=== PATIENT | female | born 1990 | race Caucasian/White ===

== ENCOUNTER 2018-01-27 06:53 | Inpatient (IN) | payer BC, SELFPAY ==
[2018-01-27] MEDS ORDERED: Butorphanol Tartrate 1 MG/ML VIAL SLOW IVP PRN (07:55)
[2018-01-27] MEDS ORDERED: Promethazine HCl 25 MG/ML VIAL IM/IV PRN (07:55)
--- NOTE | 2018-01-27 07:57 | PDOC.LDHP ---
Labor and Delivery H&P HPI: Patient of Dr Gifford here for contractions. EGA 39 weeks 5 days, G1 po. Has full handwritten H&P in chart In brief, contractions since o200 but no LOF no VB no Has. Current gestational age (weeks): 39 (5 days) Dating criteria: last menstrual period Grav: 1 Para: 0 Current complications: none Abnormal US findings: Yes Current medications: none Previous surgical history: none Allergies/Adverse Reactions: Allergies Allergy/AdvReac Type Severity Reaction Status Date / Time No Known Allergies Allergy Verified 01/27/18 07:25 Social history: none - Physical Exam Vital signs reviewed and normal: yes General: NAD Heart: RRR Lungs: CTAB Abdomen: gravid FHT: category 1 [place] contractions every: every 3 - Vaginal Exam cm dilated: 3 Effacement: 75% Station: -1 - Assessment Latent phase GBS neg - Plan Plan: observation in L&D, other (recheck in 1-2 hours, I suspect admit then due to regular contraction but we will see if changesd for now. Dr Shabbir Gifford is out of town, per personal communication, so or team will cover. Patient seen by me at bedside)
[2018-01-27] MEDS ORDERED: Lactated Ringer's 1,000 ML IV SCH ×2 (08:00→09:45)
[2018-01-27] MEDS ORDERED: HYDROcodone/Acetaminophen 5/325 mg Tablet PO PRN ×2 (09:37)
[2018-01-27] MEDS ORDERED: Promethazine HCl 25 MG/ML VIAL IM PRN ×2 (09:37→23:53)
[2018-01-27] MEDS ORDERED: Lidocaine 1% (PF) 30 ML VIAL SC PRN (09:37)
[2018-01-27] MEDS ORDERED: Ondansetron HCl/PF 4 MG/2 ML Vial IVP PRN ×3 (09:37→23:53)
[2018-01-27] MEDS ORDERED: Ibuprofen 800 MG TAB PO PRN (09:37)
[2018-01-27] MEDS ORDERED: NS / Oxytocin 40 units/1000ml 1,000 ML IV PRN (09:37)
--- NOTE | 2018-01-27 09:42 | PDOC.EVN ---
Event Note - Event Note Event Note: Breathing with UCs. SVE per RN now 4cm/90/0 vtx. Fhts stable, UCs q 3-4 mins. Admit. Requesting epidural.
[2018-01-27] MEDS ORDERED: NS w/ Oxytocin 10 units 500 ML IV SCH (09:45)
[2018-01-27] MEDS ORDERED: DISCONTINUE ALL PREVIOUS NARCOTICS FS SCH (09:45)
[2018-01-27 09:52] LABS: Hemoglobin 13.6 g/dL (12.0-16.0); Mean Corpuscular HGB CONC 34.5 g/dL (32.0-36.0); Mean Corpuscular Hemoglobin 30.7 pg (27.0-31.0); Mean Corpuscular Volume 89.2 fl (81.0-99.0); Mean Platelet Volume 9.7 fL (7.4-10.4); Platelet Count 149 thou/uL (130-400); Red Blood Cell (RBC) Count 4.42 mill/uL (4.20-5.40); White Blood Cell (WBC) Count 16.7 thou/uL (4.8-10.8)
[2018-01-27] MEDS ORDERED: Lidocaine 2% 10 ML INJ ONE ×2 (10:20→22:14)
[2018-01-27 10:21] LABS: HBSAg Index 0.27 S/CO (0-0.99); Hep B Surf Ag Non-Reactive S/CO (NonReactive); Syphilis Antibody Nonreactive (Nonreactive); Syphilis Antibody Index 0.07 S/CO (<1.00 Non-Reactive)
[2018-01-27] MEDS ORDERED: Lidocaine 1% (PF) 30 ML VIAL ONE (10:21)
[2018-01-27] MEDS ORDERED: Sodium Chloride 0.9% 10 ML ONE (10:21)
--- NOTE | 2018-01-27 11:04 | PDOC.EVN ---
Event Note - Event Note Event Note: Comfortable post epidural. SVE= 4-5/80/-1, vtx. AROM with bloody fluid and particulate meconium. FHts are stable. UCs q 3-[address] IUPC and do amnioinfuion. Will observe carefully.
[2018-01-27] MEDS: Bupivacaine 0.5% 20 ML, fentaNYL Citrate/PF 400 MCG in Sodium Chloride 0.9% 72 ML EPIDURAL SCH ×2 (11:23→18:54)
[2018-01-27] MEDS: Lactated Ringer's 1,000 ML IV SCH ×3 (11:26→22:07)
[2018-01-27] MEDS ORDERED: Sodium Chloride 0.9% (PF) 10 ML VIAL ONE (13:00)
[2018-01-27] MEDS ORDERED: Bupivacaine/Epinephrine 0.25% 30 ML VIAL ONE (13:00)
[2018-01-27] MEDS ORDERED: Lidocaine 2% MPF 10 ML AMP (For Epidural Use) ONE ×2 (13:00→14:24)
--- NOTE | 2018-01-27 13:08 | PDOC.LDPN ---
Labor & Delivery Progress Note - Subjective Subjective: comfortable (Epidural in place.) - Objective Vital signs reviewed and normal: yes General: NAD Uterine fundus: palpable contractions SVE: 5-6 cm per RN Effacement: 90% FHT: category 1 [place] contractions every: q 3-5 mins Other exam findings: IUPC in place with amnioinfusion -: Progressing FHTs remain reassuring. Cont. amnioinfusion.
[2018-01-27] MEDS ORDERED: Lidocaine 1% PF 5 ML VIAL ONE (14:24)
[2018-01-27] MEDS ORDERED: Ondansetron HCl/PF 4 MG/2 ML Vial ONE (14:24)
[2018-01-27] MEDS ORDERED: Ketorolac Tromethamine 30 MG/ML VIAL ONE ×2 (14:24→22:22)
[2018-01-27] MEDS ORDERED: Dexamethasone 20 MG/5 ML VIAL ONE (14:24)
--- NOTE | 2018-01-27 15:13 | PDOC.LDPN ---
Labor & Delivery Progress Note - Subjective Subjective: comfortable - Objective Vital signs reviewed and normal: yes General: resting Uterine fundus: palpable contractions Dilation: 6-7 Effacement: 90% Station: 0 FHT: category 1, variability present [place] contractions every: q 2-3 min -: Continues to progress. Remains comfortable with epidural. Cont. amnioinfusion.
--- NOTE | 2018-01-27 17:10 | PDOC.LDPN ---
Labor & Delivery Progress Note - Subjective Subjective: comfortable - Objective Vital signs reviewed and normal: yes General: resting Uterine fundus: palpable contractions Dilation: 9 Effacement: 100% Station: 0 FHT: category 1 [place] contractions every: q 2-3 mins Plan: continue plan of care -: Progressing well.
--- NOTE | 2018-01-27 18:22 | PDOC.EVN ---
Event Note - Event Note Event Note: Remains comfortable with epidural. SVE remains unchanged, 9/C/0 per labor RN. Fhts with variable decels and good BTBV. UCs q 3-4 min. Temp now = 100.0. Plan: Start Amp and Gent for presumed chorioamnionitis, start pitocin augmentation. Watch carefully.
[2018-01-27] MEDS ORDERED: CEFAZOLIN 1 GM VIAL ONE (18:25)
[2018-01-27] MEDS ORDERED: CEFAZOLIN/Water 2 GM/20 ML SYRINGE ONE (18:30)
[2018-01-27] MEDS ORDERED: Gentamicin Sulfate 80 MG in Premix Bag 1 BAG IVPB SCH (20:00)
[2018-01-27] MEDS ORDERED: Ampicillin 2 GM in Sodium Chloride 0.9% 100 ML IVPB SCH (20:00)
--- NOTE | 2018-01-27 20:06 | PDOC.LDPN ---
Labor & Delivery Progress Note - Subjective Subjective: vaginal pressure - Objective Abnormal vital signs: T= 100.9 General: NAD Uterine fundus: palpable contractions SVE: C/C/+1 with caput FHT: category 1 [place] contractions every: q 2-3 mins Other exam findings: Pit @ 2 mu/min -: Gent given, Amp infusing. Begin pushing.
--- NOTE | 2018-01-27 22:09 | PDOC.LDPN ---
Labor & Delivery Progress Note - Subjective Subjective: other (Too tired to continue to push) - Objective Vital signs reviewed and normal: yes General: other (tearful) Uterine fundus: palpable contractions SVE: C/C/0- +1 FHT: variable decelerations [place] contractions every: q 2-3 mins Other exam findings: vtx not on pelvic floor -: Pt. unable to continue to push, requests C/S. Would not use vacuum assist at this time. Will proceed with abdominal delivery. Consent on chart.
[2018-01-27] MEDS ORDERED: Bicitra 30 ML UDCUP ONE ×2 (22:15→22:26)
[2018-01-27] MEDS ORDERED: Oxytocin 10 UNITS/ML VIAL ONE (22:22)
[2018-01-27] MEDS ORDERED: Dexamethasone 4 mg/ml Vial ONE (22:22)
[2018-01-27] MEDS ORDERED: Bicitra 30 ML UDCUP PO SCH (22:30)
[2018-01-27] MEDS ORDERED: Fentanyl 100 MCG/2 ML VIAL ONE (23:04)
[2018-01-27] MEDS ORDERED: Bupivacaine/Epinephrine 0.5% 10 ML VIAL ONE (23:07)
[2018-01-27] MEDS ORDERED: Methylergonovine 0.2 MG/ML VIAL ONE (23:08)
[2018-01-27] MEDS ORDERED: Midazolam HCl 2 mg/2 ml Vial ONE (23:10)
[2018-01-27] MEDS ORDERED: Morphine PF 1 MG/ML SYR ONE (23:20)
[2018-01-27] MEDS ORDERED: Ketorolac Tromethamine 30 MG/ML VIAL IVP SCH (23:45)
[2018-01-27] MEDS ORDERED: Communication Order-Pharmacy FS SCH (23:45)
[2018-01-27] MEDS ORDERED: diphenhydrAMINE 50 MG/ML VIAL IVP PRN (23:53)
[2018-01-27] MEDS ORDERED: Naloxone HCl 0.4 mg/ml Vial IV PRN (23:53)
[2018-01-27] MEDS ORDERED: HYDROmorphone 2 MG/ML VIAL SLOW IVP PRN (23:53)
[2018-01-27] MEDS ORDERED: Naloxone HCl 0.4 mg/ml Vial IVP PRN ×2 (23:53)
[2018-01-27] MEDS ORDERED: Promethazine HCl 25 MG SUPP PR PRN (23:53)
[2018-01-27] MEDS ORDERED: Eucerin (Mineral Oil/Petrolatum,White) 30 gm Jar TOP PRN (23:53)
[2018-01-27] MEDS ORDERED: Meperidine HCl/PF 25 MG/ML VIAL SLOW IVP PRN (23:53)
[2018-01-27] MEDS ORDERED: Ketorolac Tromethamine 30 MG/ML VIAL IVP PRN (23:53)
--- NOTE | 2018-01-28 01:05 | OP ---
DATE OF OPERATION: 01/27/2018 PREOPERATIVE DIAGNOSES: 1. A 39-week intrauterine in labor. 2. Failure to progress. 3. Meconium-stained fluid. 4. Chorioamnionitis. POSTOPERATIVE DIAGNOSES: 1. A 39-week intrauterine in labor. 2. Failure to progress. 3. Meconium-stained fluid. 4. Chorioamnionitis. 5. Deep transverse arrest. SURGEON: Horace Sands M.D. MAINTENANCE TECH: Tomas Hackett M.D., Resident Physician. PROCEDURE PERFORMED: Primary low segment transverse section via Pfannenstiel incision. FINDINGS: 1. Viable male , weight 6 pounds 14 ounces, found in the occiput transverse position deep in the pelvis with Apgars 1, 2 and 5. 2. Normal uterus, tubes, and ovaries bilaterally. PROPHYLAXIS: Ampicillin and gentamicin given for chorioamnionitis in labor. ESTIMATED BLOOD LOSS: 700 mL. COMPLICATIONS: None. BRIEF PATIENT DESCRIPTION: Ms. Tejada is a 27-year-old, white, G1, P0, who presented this morning in labor. Amniotomy was performed after admission and particulate meconium-stained fluid was seen. An IUPC with amnioinfusion was placed. The patient labored throughout the day with a reassuring tracing. She did require Pitocin augmentation at 9 cm to allow her become complete. She pushed for 2 hours and there was marked caput with the vertex remaining at the 0 to +1 station. Decision was made to proceed with primary section. Risks and benefits were discussed and the consent was on the chart. TECHNIQUE IN DETAIL: After good epidural anesthesia was achieved, the patient was prepped and draped in the usual sterile fashion in the supine position with leftward tilt. A transverse incision was made two fingerbreadths above the symphysis pubis and the abdomen was entered in layers. The uterus was identified and a bladder flap was created in the peritoneum. A transverse incision was made over the lower uterine segment and was extended bluntly. The baby was found deep in the pelvis in the occiput transverse position. The baby was delivered and the cord was clamped and cut. The baby was quickly taken to the warmer with the NICU team in attendance. The cord gases and cord blood were obtained. I found out later that the cord gases were clotted. The placenta was manually removed and the inside of the uterus was curetted with a dry lap to remove all remaining placental fragments. Closure of the uterine incision was begun using #1 chromic and then alternating running locking fashion. A second imbricating layer was placed for complete hemostasis. The uterus was replaced into the uterine cavity and the pelvic gutters were irrigated and cleared of all clots and debris. The uterine incision was again reviewed and was noted to be hemostatic. The peritoneum was closed using a 2-0 Monocryl in a running suture. The rectus muscles were inspected and were noted to be dry. Closure of the fascia was accomplished using two sutures of 0 Vicryl brought laterally to the midline in an alternating running locking fashion. The subcutaneous tissue was thoroughly irrigated and made dry using Bovie coagulation technique. The skin was closed with metal jude. Sponge, lap, and needle counts were correct. The patient tolerated the procedure well and was taken to the recovery room in good condition. SANDY
[2018-01-28] MEDS ORDERED: Lactated Ringer's 1,000 ML IV SCH (01:59)
[2018-01-28] MEDS ORDERED: NS / Oxytocin 40 units/1000ml 1,000 ML IV SCH (01:59)
[2018-01-28] MEDS ORDERED: Ondansetron HCl/PF 4 MG/2 ML Vial IVP PRN (01:59)
[2018-01-28] MEDS ORDERED: Lanolin Ointment 7 GM TUBE TOP PRN (01:59)
[2018-01-28] MEDS ORDERED: Zolpidem Tartrate 5 MG TAB PO PRN (01:59)
[2018-01-28] MEDS ORDERED: Ampicillin/Sulbactam 3 GM in Sodium Chloride 0.9% 100 ML IVPB SCH (02:15)
--- NOTE | 2018-01-28 02:57 | PDOC.PP ---
Post Progress Note Post Day #: POD#1 Subjective: Resting comfortably. No complaints. PO intake tolerated: no Flatus: no Ambulation: no Vital Signs (12 hours) Temp Pulse Resp BP Pulse Ox 01/28/18 01:45 98.9 F 102 H 18 112/81 97 01/27/18 20:00 98.1 F 89 18 Weight Weight 57.606 kg - Physical Examination General: NAD Respiratory: non-labored breathing Abdominal: no distention Fundus firm & at: umbilicus Extremities: negative homans (B) Psychiatric: A&Ox3 Result Diagrams: 01/27/18 09:43 Additional Labs: Post Labs Blood Type O POSITIVE 01/27/18 09:43 Hep Bs Antigen Non-Reactive S/CO (NonReactive) 01/27/18 09:43 - Assessment/Plan Stable postop s/p 1* c/S. Routine postop care. H/H in AM. Baby intubated in [place] with suspected meconium aspiration; pt. aware.
[2018-01-28 04:42] LABS: Mean Corpuscular Hemoglobin 30.7 pg (27.0-31.0); Mean Corpuscular Volume 90.1 fl (81.0-99.0); Mean Platelet Volume 8.8 fL (7.4-10.4); Platelet Count 117 thou/uL (130-400); RBC Distribution Width 12.1 % (11.5-14.5); White Blood Cell (WBC) Count 23.2 thou/uL (4.8-10.8)
[2018-01-28] MEDS: Ampicillin/Sulbactam 3 GM in Sodium Chloride 0.9% 100 ML IVPB SCH ×2 (08:33→14:09)
[2018-01-28] MEDS ORDERED: Adacel (T-DAP) 0.5 ML VIAL IM ONE (09:00)
[2018-01-28] MEDS: HYDROcodone/Acetaminophen 5/325 mg Tablet PO PRN ×3 (10:00→22:19)
[2018-01-28] MEDS: Prenatal Vitamin 1 TAB PO SCH (10:00)
[2018-01-28] MEDS: Simethicone Chewable 80 MG TAB PO PRN ×2 (10:01→17:47)
[2018-01-28] MEDS: Ferrous Sulfate 325 MG TAB PO SCH ×2 (10:02→16:33)
[2018-01-28] MEDS: Ibuprofen 800 MG TAB PO SCH (22:18)
[2018-01-29] MEDS ORDERED: Ibuprofen 800 MG TAB PO SCH (06:00)
[2018-01-29] MEDS: Ibuprofen 800 MG TAB PO SCH ×3 (06:22→21:23)
--- NOTE | 2018-01-29 07:17 | PDOC.PP ---
Post Progress Note Post Day #: 2 Subjective: Doing well this morning, no complaints. Pain well controlled. PO intake tolerated: yes Flatus: yes Ambulation: yes Vital Signs (12 hours) Temp Pulse Resp BP BP 01/29/18 04:15 97.7 F 89 18 108/65 01/29/18 00:02 98.3 F 95 18 91/55 L 01/28/18 22:19 20 01/28/18 20:30 98.7 F 113 H 18 110/64 Weight Weight 127 lb - Physical Examination General: NAD Respiratory: non-labored breathing Abdominal: lochia (normal), no distention, appropriately TTP Fundus firm & at: U-3 Skin: CS incision dry & intact, no rash Neurological: no gross focal deficits Psychiatric: A&Ox3, normal affect Result Diagrams: 01/28/18 04:30 Additional Labs: Post Labs Blood Type O POSITIVE 01/27/18 09:43 Hep Bs Antigen Non-Reactive S/CO (NonReactive) 01/27/18 09:43 (1) delivery delivered Code(s): O82 - ENCOUNTER FOR DELIVERY WITHOUT INDICATION Status: Acute (2) Deep transverse arrest Code(s): O64.0XX0 - OBSTRUCTED LABOR DUE TO INCMPL ROTATION OF HEAD, UNSP Status: Acute (3) Chorioamnionitis Code(s): O41.1290 - CHORIOAMNIONITIS, UNSP TRIMESTER, NOT APPLICABLE OR UNSP Status: Acute - Assessment/Plan Continue current management. Possible d/c home tomorrow.
[2018-01-29] MEDS: Prenatal Vitamin 1 TAB PO SCH (09:24)
[2018-01-29] MEDS: Ferrous Sulfate 325 MG TAB PO SCH ×2 (09:24→18:05)
[2018-01-29] MEDS: HYDROcodone/Acetaminophen 5/325 mg Tablet PO PRN ×2 (09:25→20:09)
--- NOTE | 2018-01-29 20:22 | PDOC.EVN ---
Event Note - Event Note Event Note: POSTOP DAY 2 FEVER NOTE I was just called by the patient's RN that the patient (now off antibiotics for chorio intrapartum) was 101.5. Exam is without localizing abnormalities. I have ordered: Urine culture blood cultures CBC IV gent and Cleocin due to high temp Patient seen by me at bedside
[2018-01-29] MEDS ORDERED: Gentamicin Sulfate 120 MG in Premix Bag 1 BAG IVPB SCH (20:30)
[2018-01-29 20:56] LABS: #Eosinphils 0.1 thou/uL (0.0-0.7); #Monocytes 0.3 thou/uL (0.11-0.59); #Neutrophils 13.6 thou/uL (1.40-6.50); %Basophils 0.1 % (0.0-1.0); %Eosinophils 0.5 % (0.0-10.0); %Lymphocytes 6.3 % (21.0-51.0); %Monocytes 2.2 % (0.0-10.0); %Neutrophils 90.9 % (42.0-75.0); Hemoglobin 9.1 g/dL (12.0-16.0); Mean Corpuscular HGB CONC 33.5 g/dL (32.0-36.0); Mean Corpuscular Volume 92.6 fl (81.0-99.0); Mean Platelet Volume 8.4 fL (7.4-10.4); Platelet Count 148 thou/uL (130-400); Red Blood Cell (RBC) Count 2.92 mill/uL (4.20-5.40); White Blood Cell (WBC) Count 14.9 thou/uL (4.8-10.8)
[2018-01-29] MEDS: Hydrocortisone 1% Cream 1.5 GM Packet TOP SCH (21:23)
[2018-01-29] MEDS: Clindamycin/D5W 900 MG in Premix Bag 1 BAG IVPB SCH (22:53)
--- NOTE | 2018-01-29 22:54 | PDOC.EVN ---
Event Note - Event Note Event Note: Lab check: CBC with WBC down to 14 (were 23 yesterday after delivery). HCT 27; platlets 148. Blood cultures sent, and urine cultures. IV Antibiotics started.
[2018-01-30] MEDS: Gentamicin Sulfate 80 MG in Premix Bag 1 BAG IVPB SCH ×3 (04:59→22:04)
[2018-01-30] MEDS: Ibuprofen 800 MG TAB PO SCH ×3 (05:04→22:04)
[2018-01-30] MEDS: Clindamycin/D5W 900 MG in Premix Bag 1 BAG IVPB SCH ×3 (06:05→21:04)
--- NOTE | 2018-01-30 06:21 | PDOC.PP ---
Post Progress Note Post Day #: 3 Subjective: Feels better, rash on abdomen improved with topical hydrocortisone PO intake tolerated: yes Flatus: yes Ambulation: yes Vital Signs (12 hours) Temp Pulse Resp BP BP Pulse Ox 01/30/18 00:00 98.6 F 103 H 18 101/56 L 01/29/18 22:00 100.9 F H 01/29/18 20:00 101.5 F H 120 H 20 125/77 99 Weight Weight 127 lb current temp 97.9 this last check at rounds - Physical Examination General: NAD Cardiovascular: no m/r/g Respiratory: clear to auscultation bilaterally Abdominal: + bowel sounds, no distention, appropriately TTP Extremities: negative homans (B) Skin: CS incision dry & intact (jude) Neurological: no gross focal deficits Psychiatric: A&Ox3, normal affect Result Diagrams: 01/29/18 20:46 Additional Labs: Post Labs Blood Type O POSITIVE 01/27/18 09:43 Hep Bs Antigen Non-Reactive S/CO (NonReactive) 01/27/18 09:43 (1) fever Code(s): O86.4 - PYREXIA OF UNKNOWN ORIGIN FOLLOWING DELIVERY Status: Acute (2) delivery delivered Code(s): O82 - ENCOUNTER FOR DELIVERY WITHOUT INDICATION Status: Acute - Assessment/Plan POD3 with temp 101.5 at 2000...started on IV Gent and Clinda. Blood and urine cultures pending. Continue ABX today
[2018-01-30] MEDS: HYDROcodone/Acetaminophen 5/325 mg Tablet PO PRN ×2 (08:32→22:06)
[2018-01-30] MEDS: Ferrous Sulfate 325 MG TAB PO SCH ×2 (08:32→15:48)
[2018-01-30] MEDS: Hydrocortisone 1% Cream 1.5 GM Packet TOP SCH ×2 (08:33→21:04)
[2018-01-30] MEDS: Prenatal Vitamin 1 TAB PO SCH (08:33)
[2018-01-30] MEDS ORDERED: Sodium Chloride 0.9% 10 ML ONE (13:00)
[2018-01-31] MEDS: Clindamycin/D5W 900 MG in Premix Bag 1 BAG IVPB SCH ×3 (05:19→22:06)
[2018-01-31] MEDS: Gentamicin Sulfate 80 MG in Premix Bag 1 BAG IVPB SCH ×3 (06:19→23:30)
[2018-01-31] MEDS: Ibuprofen 800 MG TAB PO SCH ×3 (06:29→22:06)
--- NOTE | 2018-01-31 07:25 | PRG ---
DATE OF SERVICE: 01/31/2018. SUBJECTIVE: The patient is postop day #4 status post a primary for arrest of labor. Brittany herman's course has been complicated by fever and presumed endometritis. She was placed on ge ntamicin and clindamycin yesterday. The patient reports that she is tolerating p.o. well, voiding on her own, having decreased lochia and good pain control. T-max in the last 24 hours was 100.4, last night around 08:00, which is an improvement from the previous 24 hours. OBJECTIVE: GENERAL: She appears to be in no acute distress. She is alert and oriented, cooperative and pleasan t to interact with. HEENT: Head is normocephalic, atraumatic. ABDOMEN: Soft. Fundus is nontender. Incision is clean, dry, and intact with jude. EXTREMITIES: Nontender, nonedematous. ASSESSMENT AND PLAN: The patient is postoperative day #4 status post a primary for arrest with presumed endometritis. Blood cultures and urine cultures are pending. We will continue gentami jose and clindamycin until 48 hours afebrile or indication for a different antibiotic.
[2018-01-31] MEDS: Prenatal Vitamin 1 TAB PO SCH (08:46)
[2018-01-31] MEDS: HYDROcodone/Acetaminophen 5/325 mg Tablet PO PRN ×2 (08:46→22:18)
[2018-01-31] MEDS: Ferrous Sulfate 325 MG TAB PO SCH ×2 (08:47→22:51)
[2018-01-31] MEDS: Docusate Calcium (SURFAK) 240 MG CAP PO SCH ×2 (11:16→22:19)
[2018-01-31] MEDS: Hydrocortisone 1% Cream 1.5 GM Packet TOP SCH ×2 (11:16→22:19)
[2018-01-31] MEDS: Ampicillin 2 GM in Sodium Chloride 0.9% 100 ML IVPB SCH ×2 (11:16→16:49)
[2018-01-31] MEDS ORDERED: Ampicillin 2 GM in Sodium Chloride 0.9% 100 ML IVPB SCH (12:00)
[2018-02-01] MEDS: Ampicillin 2 GM in Sodium Chloride 0.9% 100 ML IVPB SCH ×3 (00:51→17:20)
[2018-02-01] MEDS: Ibuprofen 800 MG TAB PO SCH ×2 (05:03→14:01)
[2018-02-01] MEDS: Clindamycin/D5W 900 MG in Premix Bag 1 BAG IVPB SCH ×2 (05:03→14:03)
[2018-02-01] MEDS: Gentamicin Sulfate 80 MG in Premix Bag 1 BAG IVPB SCH ×2 (06:11→14:02)
--- NOTE | 2018-02-01 06:37 | PDOC.PP ---
Post Progress Note Post Day #: POD#5 Subjective: Feeling much better. no F/C. Tolerating a regular diet. PO intake tolerated: yes Flatus: yes Ambulation: yes Vital Signs (12 hours) Temp Pulse Resp BP 02/01/18 04:00 97.6 F 02/01/18 00:53 98.1 F 01/31/18 20:00 98.6 F 82 16 120/72 Weight Weight 57.606 kg - Physical Examination General: NAD Respiratory: non-labored breathing Abdominal: no distention Fundus firm & at: firm, nontender Extremities: negative homans (B) Skin: CS incision dry & intact Psychiatric: A&Ox3, normal affect Result Diagrams: 01/29/18 20:46 Additional Labs: Post Labs Blood Type O POSITIVE 01/27/18 09:43 Hep Bs Antigen Non-Reactive S/CO (NonReactive) 01/27/18 09:43 - Assessment/Plan Resolving endometritis on Gent/Clinda. AF now x 36 hurs. Will complete 48 hrs of ABX.
[2018-02-01] MEDS: Prenatal Vitamin 1 TAB PO SCH (08:36)
[2018-02-01] MEDS: Ferrous Sulfate 325 MG TAB PO SCH ×2 (08:36→17:20)
[2018-02-01] MEDS: Docusate Calcium (SURFAK) 240 MG CAP PO SCH (08:36)
[2018-02-01] MEDS: Hydrocortisone 1% Cream 1.5 GM Packet TOP SCH (14:13)
[2018-02-01 20:14] VITALS: BP 118/68; TEMP 98.5
--- NOTE | 2018-02-02 05:52 | DIS ---
ADMITTING DIAGNOSIS: Labor at 39 weeks. DISCHARGE DIAGNOSES: Primary , endomyometritis, chorioamnionitis, arrest of labor. PROCEDURE: Primary lower transverse . HOSPITAL COURSE: The patient is a 27-year-old female who presented to Labor and Delivery in [facility] and was later admitted for a transition to active labor. Her labor course was complicated by ch orioamnionitis and arrest, necessitating a primary . For complete details, please refer to the operative note. Estimated blood loss was 700 mL. The patient was placed on amp and gent for cho rioamnionitis for 24 hours and the antibiotics were discontinued. On the evening of hospital day #2 the patient spiked a temperature of 101.5 and the patient was placed back on triple antibiotics. By hospital day #5, the patient has been 48 hours now afebrile. She reports that she is feeling much be tter with much better pain control and decreased bleeding, tolerating p.o., voiding on her own. PHYSICAL EXAMINATION: VITAL SIGNS: Blood pressure is 109/71, temperature 99.1, pulse of 92, respiratory rate of 20. GENERAL: She appears to be in no acute distress. She is alert and oriented, cooperative and pleasan t to interact with. HEENT: Normocephalic, atraumatic. Fundus is firm. Nontender to palpation. Her incision is clean, dry, and intact with jude. EXTREMITIES: Nontender, nonedematous. Her post-delivery hemoglobin 9.1, hematocrit 27.0, platelets of 148,000. The patient is being discharged to home on ibuprofen and Tylenol #3. We will be removing jude and replacing them with Steri-Strips prior to discharge. She has instructions to follow up with her wm Dr. Ирина Sahu in 2 weeks for an incision check. She has been given instructions to seek medic al attention sooner if she experiences fever, increasing pain or bleeding, redness or drainage from t he incision site. She has been given restrictions of 15 pound weight limit over the next 4-6 weeks. No driving for 2 weeks and pelvic rest for 4 weeks.
== END 2018-02-01 21:00 | disposition home or self-care (01) | DRG 765 ==
LOC: L&D/OP 06:53 → L&D 16:04 → 3SW 01-28 01:59
PROVIDERS: ADMIT Obstetrics & Gynecology; ATTEND Student in an Organized Health Care Education/Training Program
PROC: 10D00Z1 Extraction of Products of Conception, Low, Open Approach (ICD-10-PCS; principal; 2018-01-27)
DX: O62.1 Secondary uterine inertia (principal); O41.1230 Chorioamnionitis, third trimester, not applicable or unspecified; Z37.0 Single live birth; Z3A.39 39 weeks gestation of pregnancy; O77.0 Labor and delivery complicated by meconium in amniotic fluid; O64.0XX0 Obstructed labor due to incomplete rotation of fetal head, not applicable or unspecified
CPT/HCPCS: 36415; 51702; 80170; 85025; 85027; 86780; 86850; 86900; 86901; 87040; 87086; 87340; 88307; 99285; A4216; J0290; J0295; J0595; J0690; J1100; J1580; J1885; J2001; J2210; J2250; J2274; J2405; J2550; J2590; J3010; J3490; J7050